=== PATIENT | female | born 1990 | race Caucasian/White ===

== ENCOUNTER 2020-08-05 08:58 | Inpatient (IN) | payer BC ==
--- NOTE | 2020-08-05 10:16 | NUR ---
RT COLLECTED COVID 19 SWAB WITH NO COMPLICATIONS. RT USED THE CEPHEID RAPID TEST THROUGH [facility] PER DR REQUEST AT THIS TIME.
--- NOTE | 2020-08-05 13:59 | PR ---
[facility] [facility] [address] [facility] [place], [place] [address] Signed Progress Notes IP Datetime Report Generated by CPN: 08/05/2020 13:58 PROGRESS NOTES: [id number] Impression: Reassuring Heart Rate Procedures: Artificial ROM; Sterile Vag Exam Plan: Continue Present Management VITAL SIGNS: [id number] Vital Signs: Reviewed VS Notable Details: HTN EXAM: [id number] Contractions: q 2 to 4 min, mild MEMBRANES: [id number] Comments: Doing well so far. Will continue. FETUS A: [id number] FHR Baseline: 140 Variability: Moderate 6-25bpm Accelerations: 15X15 Decelerations: None FHR Category: Category I Presentation: Vertex Comments on Fetus A: No evidence of metabolic acidosis FETUS B: [id number] FHR Baseline: 145 Variability: Moderate 6-25bpm Accelerations: 15X15 Decelerations: None FHR Category: Category I Presentation: Vertex Comments on Fetus B: No evidence of metabolic acidosis Signing Physician: Sia Mena MD Copies: ~ *Electronically Signed* 08/05/20 1358 SIA MENA MD PATIENT NAME: BRIA BARCENAS PROGRESS NOTE DATE OF : 90 PHYSICIAN: SIA MENA MD RPT #: [id number] REPORT IS CONFIDENTIAL AND NOT TO BE RELEASED WITHOUT AUTHORIZATION
--- NOTE | 2020-08-05 16:17 | PR ---
[facility] [address] [place], [place] [address] Signed Progress Notes IP Datetime Report Generated by GUSTAVO: 08/05/2020 16:17 PROGRESS NOTES: [id number] Impression: Normal Progression of Labor Procedures: Scalp Electrode; Sterile Vag Exam Plan: Anesthesia Consult VITAL SIGNS: [id number] Vital Signs: Reviewed VS Notable Details: HTN EXAM: [id number] Dilatation: 6.0 Effacement: 80 Station: -2 Contractions: q 2 to 4 min, mild MEMBRANES: [id number] ROM Note: Baby A Membranes ruptured. Comments: Progressing though still comfortable. Will place epidural now. FETUS A: [id number] FHR Baseline: 140 Variability: Moderate 6-25bpm Accelerations: 15X15 Decelerations: None FHR Category: Category I Presentation: Vertex Comments on Fetus A: No evidence of metabolic acidosis FETUS B: [id number] FHR Baseline: 145 Variability: Moderate 6-25bpm Accelerations: 15X15 Decelerations: None FHR Category: Category I Presentation: Vertex Comments on Fetus B: No evidence of metabolic acidosis Signing Physician: Sia Mena MD Copies: *Electronically Signed* 08/05/20 1617 SIA MENA MD PATIENT NAME: BRIA BARCENAS PROGRESS NOTE DATE OF : 90 PHYSICIAN: SIA MENA MD RPT #: [id number] REPORT IS CONFIDENTIAL AND NOT TO BE RELEASED WITHOUT AUTHORIZATION [facility] [address] [place], [place] [address] Signed ~ *Electronically Signed* 08/05/20 161 SIA MENA MD PATIENT NAME: BRIA BARCENAS PROGRESS NOTE DATE OF : 90 PHYSICIAN: SIA MENA MD RPT #: [id number] REPORT IS CONFIDENTIAL AND NOT TO BE RELEASED WITHOUT AUTHORIZATION
--- NOTE | 2020-08-05 18:42 | PR ---
[facility] [address] [place], [place] [address] Signed Progress Notes IP Datetime Report Generated by CPN: 08/05/2020 18:42 PROGRESS NOTES: [id number] Impression: Normal Progression of Labor Procedures: Sterile Vag Exam Plan: Augmentation VITAL SIGNS: [id number] Vital Signs: Reviewed VS Notable Details: HTN EXAM: [id number] Dilatation: 7.0 Effacement: 80 Station: -2 Contractions: q 2 to 4 min, mild MEMBRANES: [id number] ROM Note: Baby A Membranes ruptured. Comments: Not much recent progress and contractions have spaced out. Will augment to increase contractions. Discussed with pt. FETUS A: [id number] FHR Baseline: 140 Variability: Moderate 6-25bpm Accelerations: 15X15 Decelerations: None FHR Category: Category I Presentation: Vertex Comments on Fetus A: No evidence of metabolic acidosis FETUS B: [id number] FHR Baseline: 145 Variability: Moderate 6-25bpm Accelerations: 15X15 Decelerations: None FHR Category: Category I Presentation: Vertex Comments on Fetus B: No evidence of metabolic acidosis Signing Physician: Sia Mena MD Copies: *Electronically Signed* 08/05/201841 SIA MENA MD PATIENT NAME: BRIA BARCENAS PROGRESS NOTE DATE OF : 90 PHYSICIAN: SIA MENA MD RPT #: [id number] REPORT IS CONFIDENTIAL AND NOT TO BE RELEASED WITHOUT AUTHORIZATION [address] [place] [address] Signed ~ *Electronically Signed* 08/05/20 1842 SIA MENA MD PATIENT NAME: BRIA BARCENAS PROGRESS NOTE DATE OF : 90 PHYSICIAN: SIA MENA MD RPT #: [id number] REPORT IS CONFIDENTIAL AND NOT TO BE RELEASED WITHOUT AUTHORIZATION
--- NOTE | 2020-08-05 21:15 | PR ---
[facility] [address] [place], [place] [address] Signed Progress Notes IP Datetime Report Generated by GUSTAVO: 08/05/2020 21:14 PROGRESS NOTES: [id number] Impression: Normal Progression of Labor Procedures: Sterile Vag Exam Plan: Continue Present Management VITAL SIGNS: [id number] Vital Signs: Reviewed VS Notable Details: HTN EXAM: [id number] Dilatation: 8.0 Effacement: 80 Station: -1 Contractions: q 2 to 4 min, mild MEMBRANES: [id number] ROM Note: Baby A Membranes ruptured. Comments: Feeling more pressure. She is progressing now. Will continue. FETUS A: [id number] FHR Baseline: 140 Variability: Moderate 6-25bpm Accelerations: 15X15 Decelerations: None FHR Category: Category I Presentation: Vertex Comments on Fetus A: No evidence of metabolic acidosis FETUS B: [id number] FHR Baseline: 145 Variability: Moderate 6-25bpm Accelerations: 15X15 Decelerations: None FHR Category: Category I Presentation: Vertex Comments on Fetus B: No evidence of metabolic acidosis Signing Physician: Sia Mena MD Copies: *Electronically Signed* 08/05/202113 SIA MENA MD PATIENT NAME: BRIA BARCENAS PROGRESS NOTE DATE OF : 90 PHYSICIAN: SIA MENA MD RPT #: [id number] REPORT IS CONFIDENTIAL AND NOT TO BE RELEASED WITHOUT AUTHORIZATION [facility] [address] [place], [place] [address] Signed ~ *Electronically Signed* 08/05/20 211 SIA MENA MD PATIENT NAME: BRIA BARCENAS PROGRESS NOTE DATE OF : 90 PHYSICIAN: SIA MENA MD RPT #: [id number] REPORT IS CONFIDENTIAL AND NOT TO BE RELEASED WITHOUT AUTHORIZATION
--- NOTE | 2020-08-05 22:39 | PR ---
[facility] [address] [place], [place] [address] Signed Progress Notes IP Datetime Report Generated by CPN: 08/05/2020 22:39 PROGRESS NOTES: [id number] Impression: Normal Progression of Labor Other Impressions: slow progress Procedures: Sterile Vag Exam Plan: Continue Present Management Other Plans: position changes VITAL SIGNS: [id number] Vital Signs: Reviewed VS Notable Details: HTN EXAM: [id number] Dilatation: 8.0 Effacement: 80 Station: -1 Contractions: q 2 to 4 min, mild MEMBRANES: [id number] ROM Note: Baby A Membranes ruptured. Comments: No real progress since last exam. Will increase pit slightly and try different positions. Both babies are looking well. FETUS A: [id number] FHR Baseline: 140 Variability: Moderate 6-25bpm Accelerations: 15X15 Decelerations: None FHR Category: Category I Presentation: Vertex Comments on Fetus A: No evidence of metabolic acidosis FETUS B: [id number] FHR Baseline: 145 Variability: Moderate 6-25bpm Accelerations: 15X15 Decelerations: None FHR Category: Category I Presentation: Vertex Comments on Fetus B: No evidence of metabolic acidosis Signing Physician: Sia Mena MD *Electronically Signed* 08/05/20 2239 SIA MENA MD PATIENT NAME: BRIA BARCENAS PROGRESS NOTE DATE OF : 90 PHYSICIAN: SIA MENA MD RPT #: [id number] REPORT IS CONFIDENTIAL AND NOT TO BE RELEASED WITHOUT AUTHORIZATION [address] [address] Signed Copies: ~ *Electronically Signed* 08/05/20 2239 SIA MENA MD PATIENT NAME: BRIA BARCENAS PROGRESS NOTE DATE OF : 90 PHYSICIAN: SIA MENA MD RPT #: [id number] REPORT IS CONFIDENTIAL AND NOT TO BE RELEASED WITHOUT AUTHORIZATION
--- NOTE | 2020-08-07 08:20 | PR ---
[facility] [address] [facility] [place], [place] [address] Signed PP Progress Notes Datetime Report Generated by GUSTAVO: 08/07/2020 08:20 SUBJECTIVE: [id number] Pain: Within Normal Limits Vital Signs: [id number] Vital Signs: Reviewed; Within Normal Limits Cardiovascular: Not Done Respiratory: Not Done Abdomen/Uterus: Abnormal Lochia: Normal Vulva/Perineum: Not Done Breasts: Not Done CVA Tenderness: Not Done Extremities: Normal Incision: Not Applicable Progress: Normal Exam Comments: Fundus firm, NT @ U-2. H/H 7.7/22.8, WBC 12.6, plat 128k IMPRESSION/PLAN/PROCEDURES: [id number] Impression: Normal Progression Plan: Continue Present Management Procedures: Rhogam Progress Notes: Doing well overall. Anemia--Tolerating her anemia thus far so no need for tx Thrombocytopenia--improving Preeclampsia--BPs normal at this time Signing Physician: Sia Mena MD Copies: ~ *Electronically Signed* 08/07/20 0820 SIA MENA MD PATIENT NAME: BRIA BARCENAS PROGRESS NOTE DATE OF : 90 PHYSICIAN: SIA MENA MD RPT #: [id number] REPORT IS CONFIDENTIAL AND NOT TO BE RELEASED WITHOUT AUTHORIZATION
--- NOTE | 2020-08-08 09:42 | PR ---
[facility] [address] [facility] [place], [place] [address] Signed PP Progress Notes Datetime Report Generated by CPN: 08/08/2020 09:42 SUBJECTIVE: [id number] Pain: Within Normal Limits Vital Signs: [id number] Vital Signs: Reviewed; Within Normal Limits EXAM: Ongoing Cardiovascular: Not Done Respiratory: Not Done Abdomen/Uterus: Abnormal Lochia: Normal Vulva/Perineum: Not Done Breasts: Not Done CVA Tenderness: Not Done Extremities: Normal Incision: Not Applicable Progress: Normal Exam Comments: Fundus firm, NT @ U-2. IMPRESSION/PLAN/PROCEDURES: [id number] Impression: Normal Progression Plan: Discharge Procedures: Rhogam Progress Notes: Doing well. She is ready for D/C. Signing Physician: Sia Mena MD Copies: ~ *Electronically Signed* 08/08/2042 SIA MENA MD PATIENT NAME: BRIA BARCENAS PROGRESS NOTE DATE OF : 90 PHYSICIAN: SIA MENA MD RPT #: [id number] REPORT IS CONFIDENTIAL AND NOT TO BE RELEASED WITHOUT AUTHORIZATION
== END 2020-08-08 12:15 | disposition home or self-care (01) | DRG 805 ==
LOC: FBCO 08:58 → FBC 09:55
PROVIDERS: ADMIT Obstetrics & Gynecology; ATTEND Obstetrics & Gynecology
PROC: 10907ZC Drainage of Amniotic Fluid, Therapeutic from Products of Conception, Via Natural or Artificial Opening (ICD-10-PCS; 2020-08-05)
PROC: 00HU33Z Insertion of Infusion Device into Spinal Canal, Percutaneous Approach (ICD-10-PCS; 2020-08-05)
PROC: 3E0R3BZ Introduction of Anesthetic Agent into Spinal Canal, Percutaneous Approach (ICD-10-PCS; 2020-08-05)
PROC: 10E0XZZ Delivery of Products of Conception, External Approach (ICD-10-PCS; principal; 2020-08-06)
PROC: 0KQM0ZZ Repair Perineum Muscle, Open Approach (ICD-10-PCS; 2020-08-06)
PROC: 10D07Z6 Extraction of Products of Conception, Vacuum, Via Natural or Artificial Opening (ICD-10-PCS; 2020-08-06)
PROC: 3E0234Z Introduction of Serum, Toxoid and Vaccine into Muscle, Percutaneous Approach (ICD-10-PCS; 2020-08-07)
DX: O30.043 Twin pregnancy, dichorionic/diamniotic, third trimester (principal); O45.93 Premature separation of placenta, unspecified, third trimester; Z37.2 Twins, both liveborn; Z3A.37 37 weeks gestation of pregnancy; O14.04 Mild to moderate pre-eclampsia, complicating childbirth; O99.214 Obesity complicating childbirth; E66.9 Obesity, unspecified; Z20.822 Contact with and (suspected) exposure to COVID-19; O70.1 Second degree perineal laceration during delivery; O75.81 Maternal exhaustion complicating labor and delivery; O26.893 Other specified pregnancy related conditions, third trimester; O69.1XX0 Labor and delivery complicated by cord around neck, with compression, not applicable or unspecified; O90.81 Anemia of the puerperium; D64.9 Anemia, unspecified; O72.3 Postpartum coagulation defects; D69.6 Thrombocytopenia, unspecified; Z67.41 Type O blood, Rh negative
CPT/HCPCS: 01960; 36415; 82565; 82570; 82803; 83030; 84156; 84450; 84520; 84550; 85025; 85027; 86850; 86900; 86901; A9270; C9803; J1650; J2405; J2590; J2790; J2795; J3010; J7121; U0003